=== PATIENT | male | born 2000 | race Caucasian/White ===

== ENCOUNTER 2022-04-15 22:51 | Emergency (ER) | payer OTHER ==
[2022-04-16] MEDS ORDERED: Lidocaine 1% 20 ML MDV INJECT ONE (00:09)
[2022-04-16] MEDS ORDERED: Lidocaine 1% 10 ML MDV INJECT ONE (00:11)
== END 2022-04-16 01:15 | disposition home or self-care (01) ==
LOC: JD.ED 22:51
DX: S61.216A Laceration without foreign body of right little finger without damage to nail, initial encounter (principal); Z86.16 Personal history of COVID-19; W26.0XXA Contact with knife, initial encounter; Y99.0 Civilian activity done for income or pay
CPT/HCPCS: 99282

== ENCOUNTER 2022-09-09 21:19 | Emergency (ER) | payer SELFPAY ==
[2022-09-09] MEDS ORDERED: Lidocaine 1% 10 ML MDV INJECT ONE (22:08)
[2022-09-09] MEDS ORDERED: Diphtheria,Pertussis(Acell),Tetanus Vaccine 0.5 ML Syringe IM ONE (22:08)
== END 2022-09-09 22:50 | disposition home or self-care (01) ==
LOC: JD.ED 21:19
DX: S01.111A Laceration without foreign body of right eyelid and periocular area, initial encounter (principal); S50.12XA Contusion of left forearm, initial encounter; Z02.89 Encounter for other administrative examinations; Z23 Encounter for immunization; Y04.8XXA Assault by other bodily force, initial encounter
CPT/HCPCS: 12011; 73090-26-LT; 73090-LT; 99284

== ENCOUNTER 2022-12-15 02:00 | Emergency (ER) | payer SELFPAY ==
[2022-12-15] MEDS ORDERED: Lidocaine/EPINEPHrine/Tetracaine Soln 1 ML TOP ONE (03:28)
== END 2022-12-15 04:38 | disposition home or self-care (01) ==
LOC: JD.ED 02:00
DX: S01.01XA Laceration without foreign body of scalp, initial encounter (principal); F10.929 Alcohol use, unspecified with intoxication, unspecified; Z86.16 Personal history of COVID-19; Z88.0 Allergy status to penicillin; Y04.0XXA Assault by unarmed brawl or fight, initial encounter
CPT/HCPCS: 36415; 70450; 70450-26; 70486; 70486-26; 80307; 99282; 99284; J3490

== ENCOUNTER 2022-12-24 12:23 | Emergency (ER) | payer SELFPAY | END 2022-12-24 12:40 | disposition home or self-care (01) | LOC: JD.ED 12:23 | DX: S01.01XD Laceration without foreign body of scalp, subsequent encounter (principal); Z48.02 Encounter for removal of sutures; W22.8XXD Striking against or struck by other objects, subsequent encounter | CPT/HCPCS: 99281 ==

== ENCOUNTER 2023-10-29 15:11 | Emergency (ER) | payer SELFPAY ==
[2023-10-29 17:24] LABS: APPEARANCE,URINE SLT CLOUDY (Clear); BILIRUBIN,URINE NEGATIVE (Negative); COLOR,URINE YELLOW (Yellow); GLUCOSE,URINE NEGATIVE (Negative); KETONES,URINE NEGATIVE (Negative); LEUKOCYTE ESTERASE,URINE 2+ (Negative); NITRITE,URINE NEGATIVE (Negative); OCCULT BLOOD,URINE TRACE-INTACT (Negative); PH,URINE 6.5 (5.0-8.0); PROTEIN,URINE NEGATIVE (Negative); UROBILINOGEN,URINE 0.2 (0.2-1.0)
[2023-10-29 17:27] LABS: C. TRACHOMATIS BY PCR DETECTED; N. GONORRHOEAE BY PCR DETECTED
[2023-10-29 17:41] LABS: BACTERIA,URINE FEW /hpf (FEW); MUCUS,URINE FEW /hpf (FEW); SQUAMOUS EPITHELIAL CELLS,UR 0-5 /hpf (0-5); WBC CLUMPS,URINE FEW /hpf (NOT SEEN); WBC,URINE 40-50 /hpf (0-5)
[2023-10-29] MEDS: cefTRIAXone 500 MG Vial IM ONE (18:03)
[2023-10-29] MEDS: Azithromycin 250 MG Tab PO ONE (18:04)
[2023-10-29] MEDS: diphenhydrAMINE 50 MG/ML SDV IM ONE (18:12)
[2023-10-29] MEDS: methylPREDNISolone Sodium Succinate 125 MG/2 ML SDV IM ONE (18:12)
[2023-10-29] MEDS: Penicillin G Benzathine 1,200,000 Units/2 ML Syringe IM ONE (18:53)
== END 2023-10-29 20:15 | disposition home or self-care (01) ==
LOC: JD.ED 15:11
DX: A54.9 Gonococcal infection, unspecified (principal); A74.9 Chlamydial infection, unspecified; A53.9 Syphilis, unspecified; Z86.16 Personal history of COVID-19; Z88.1 Allergy status to other antibiotic agents
CPT/HCPCS: 36415; 81001; 86592; 86780; 87086; 87449; 87491; 87591; 96372; 99283; A9270; J0561; J0696; J1200; J2930; G0433